=== PATIENT | female | born 1930 | race Hispanic/Latino ===

== ENCOUNTER 2017-06-20 13:20 | Emergency (ER) | payer MEDICARE ==
[~2017-06-20 13:20] MED LIST: FAMO20TA8 PO; FLUT16H NS; LORA-997 PO; LORA1TAB3 PO; LOSA50TA37 PO; METF-526 PO; NAPR375T6 PO; PANT40TA25 PO; SIMV40TA59 PO
[2017-06-20] MEDS ORDERED: SODIUM CHLORIDE 0.9% 1000ML 1,000 ML IV ONE (13:47)
[2017-06-20] MEDS ORDERED: ONDANSETRON HCL MDV 20ML 2 MG/ML VIAL ONE (13:48)
[2017-06-20 14:08] LABS: BASOPHILS % (AUTO) 0.5 % (0.0-5.0); EOSINOPHILS % (AUTO) 1.9 % (0.0-8.0); HEMATOCRIT 30.2 % (36-48); MEAN CORPUSCULAR HEMOGLOBIN 26.7 pg (27.0-33.0); MEAN CORPUSCULAR HGB CONC 32.4 g/dL (32.0-36.0); MEAN CORPUSCULAR VOLUME 82.5 fL (79-99); MONOCYTES % (AUTO) 8.8 % (3.0-13.0); NEUTROPHILS % (AUTO) 63.8 % (40.0-77.0); PLATELET COUNT (AUTO) 300 K/uL (130-400); RED BLOOD CELL COUNT(AUTO) 3.66 MIL/uL (4.00-5.50); RED CELL DISTRIBUTION WIDTH 15.8 % (11.0-15.5); WHITE BLOOD COUNT (AUTO) 6.4 K/uL (4.8-10.8)
[2017-06-20 14:39] LABS: CREATININE 1.2 mg/dL (0.5-1.5)
[2017-06-20 14:43] LABS: ALBUMIN 3.7 g/dL (3.5-5.0); BILIRUBIN,TOTAL 0.3 mg/dL (0.2-1.0); TOTAL PROTEIN, SERUM 7.5 g/dL (6.0-8.3)
[2017-06-20 15:55] LABS: APPEARANCE,URINE CLEAR (CLEAR); BILIRUBIN,URINE Negative (NEGATIVE); COLOR,URINE Yellow (YELLOW); GLUCOSE, URINE (UA) TRACE mg/dL (NEGATIVE); KETONES,URINE Negative (NEGATIVE); LEUKOCYTE ESTERASE ,URINE Negative (NEGATIVE); NITRATE,URINE Negative (NEGATIVE); OCCULT BLOOD,URINE Negative (NEGATIVE); PROTEIN,URINE POS 1+ (NEGATIVE); UROBILINOGEN,URINE 0.2 mg/dL (0.2-1.0)
[2017-06-20 17:04] LABS: BACTERIA,URINE Rare /HPF (None Seen); RBC,URINE 0-1 /HPF (0-1); SQUAMOUS EPITHELIAL CELL,UR Rare /HPF (0-2); WBC,URINE 0-1 /HPF (0-1)
== END 2017-06-20 17:05 | disposition home or self-care (01) ==
LOC: EDH 13:20
DX: K52.9 Noninfective gastroenteritis and colitis, unspecified (principal); R53.1 Weakness; E11.9 Type 2 diabetes mellitus without complications; I10 Essential (primary) hypertension; E78.5 Hyperlipidemia, unspecified; G30.9 Alzheimer's disease, unspecified; F02.80 Dementia in other diseases classified elsewhere, unspecified severity, without behavioral disturbance, psychotic disturbance, mood disturbance, and anxiety
CPT/HCPCS: 36415; 74176; 80053; 81001; 82150; 83690; 84484; 85025; 93005; 96361; 96374; 99285; J7030

== ENCOUNTER 2017-09-16 11:27 | Inpatient (IN) | payer MEDICARE ==
[~2017-09-16] VITALS: Ht 147.3 cm; Wt 66.9 kg
[2017-09-16 12:18] LABS: BASOPHILS % (AUTO) 0.2 % (0.0-5.0); LYMPHOCYTES % (AUTO) 11.3 % (21.0-51.0); MEAN CORPUSCULAR HEMOGLOBIN 28.3 pg (27.0-33.0); MEAN CORPUSCULAR HGB CONC 33.8 g/dL (32.0-36.0); MEAN CORPUSCULAR VOLUME 83.7 fL (79-99); MONOCYTES % (AUTO) 9.3 % (3.0-13.0); NEUTROPHILS % (AUTO) 78.2 % (40.0-77.0); PLATELET COUNT (AUTO) 276 K/uL (130-400); RED BLOOD CELL COUNT(AUTO) 3.35 MIL/uL (4.00-5.50); RED CELL DISTRIBUTION WIDTH 15.7 % (11.0-15.5); WHITE BLOOD COUNT (AUTO) 6.1 K/uL (4.8-10.8)
[2017-09-16] MEDS ORDERED: SODIUM CHLORIDE 0.9% 1000ML 2,000 ML IV ONE (12:21)
[2017-09-16] MEDS ORDERED: ACETAMINOPHEN 325 MG TAB ONE (12:24)
[2017-09-16] MEDS ORDERED: ONDANSETRON HCL 4 MG/2 ML VIAL ONE (12:24)
[2017-09-16 12:26] LABS: CARBON DIOXIDE 24 mmol/L (21-32); CHLORIDE 96 mmol/L (101-111); CREATININE 1.6 mg/dL (0.5-1.5); GLOMERULAR FILTR. RATE CALC 32 mL/min (>60); GLUCOSE,RANDOM 202 mg/dL (70-105); POTASSIUM 5.4 mmol/L (3.5-5.1); SODIUM SERUM 133 mmol/L (136-145); UREA NITROGEN, BLOOD 23 mg/dL (7-18)
[2017-09-16 12:29] LABS: INR 1.01 (0.85-1.15); PARTIAL THROMBOPLASTIN TIME 33.9 SEC (26.3-35.5); PROTHROMBIN TIME 10.6 SEC (9.6-11.6)
[2017-09-16 12:41] LABS: ALANINE AMINOTRANSFERASE 12 U/L (12-78); ALBUMIN 3.3 g/dL (3.5-5.0); ASPARTATE AMINOTRANSFERASE 12 U/L (10-37); BILIRUBIN,TOTAL 0.3 mg/dL (0.2-1.0); CREATINE KINASE MB 1.9 ng/mL (0.5-3.6); CREATINE KINASE, TOTAL 231 U/L (21-232); MYOGLOBIN 476 ng/mL (10-92); TROPONIN I < 0.04 ng/mL (0.00-0.06)
[2017-09-16 12:49] LABS: BILIRUBIN,URINE Negative (NEGATIVE); COLOR,URINE Yellow (YELLOW); GLUCOSE, URINE (UA) Negative (NEGATIVE); KETONES,URINE Negative (NEGATIVE); LEUKOCYTE ESTERASE ,URINE Negative (NEGATIVE); NITRATE,URINE Negative (NEGATIVE); OCCULT BLOOD,URINE Negative (NEGATIVE); PROTEIN,URINE POS 2+ (NEGATIVE); UROBILINOGEN,URINE 0.2 mg/dL (0.2-1.0)
[2017-09-16] MEDS ORDERED: LEVOFLOXACIN 750 MG/D5W 150 ML 150 ML ONE (12:51)
[2017-09-16 12:52] LABS: APPEARANCE,URINE SLIGHTLY CLOUDY (CLEAR)
[2017-09-16 13:05] LABS: AMORPHOUS SEDIMENT,UR Many /LPF (None Seen); BACTERIA,URINE Few /HPF (None Seen); RBC,URINE None Seen /HPF (0-1); WBC,URINE None Seen /HPF (0-1)
[2017-09-16 13:51] LABS: OCCULT BLOOD STOOL SINGLE ONLY POSITIVE (NEGATIVE)
[2017-09-16] MEDS: METRONIDAZOLE 500MG/100ML BAG 100 ML IVPB SCH (16:00)
[2017-09-16] MEDS: SODIUM CHLORIDE 0.9% 1000ML 1,000 ML IV SCH (16:15)
[2017-09-16] MEDS ORDERED: SODIUM CHLORIDE 0.9% 1000ML 1,000 ML IV ONE (18:24)
[2017-09-16] MEDS ORDERED: METRONIDAZOLE 500MG/100ML BAG 100 ML ONE (18:24)
[2017-09-16] MEDS ORDERED: GLYC1TAB11 PO (22:43)
[2017-09-16] MEDS ORDERED: AMLO5TAB2 PO (22:47)
[2017-09-16] MEDS ORDERED: TRAM50TA4 PO (22:52)
[2017-09-16] MEDS ORDERED: FURO20TA4 PO (22:52)
[2017-09-16] MEDS ORDERED: ACET325C5 PO (22:52)
[2017-09-16] MEDS ORDERED: DIPH1TAB PO (22:59)
[2017-09-16] MEDS ORDERED: FERR325T22 PO (22:59)
[2017-09-16] MEDS ORDERED: PANT40TA25 PO (22:59)
[2017-09-16] MEDS ORDERED: LINA145C PO (23:03)
[2017-09-16] MEDS ORDERED: DOCU100C33 PO (23:03)
[2017-09-16] MEDS ORDERED: XALA2.5OS OU (23:06)
[2017-09-16] MEDS ORDERED: HUM10VIA6 SQ ×2 (23:11)
[2017-09-16] MEDS ORDERED: ONDA8TAB12 PO (23:11)
[2017-09-16] MEDS ORDERED: ACETAMINOPHEN 325 MG TAB PO PRN ×2 (23:30)
[2017-09-16] MEDS ORDERED: ONDANSETRON HCL MDV 20ML 2 MG/ML VIAL IV PRN (23:30)
[2017-09-16] MEDS ORDERED: GLUCAGON 1MG KIT 1 MG ML IM PRN (23:45)
[2017-09-16] MEDS ORDERED: DEXTROSE 50%-WATER 50 ML DISP.SYRIN IV PRN (23:45)
[2017-09-17] VITALS: BP 158/51
[2017-09-17] MEDS: METRONIDAZOLE 500MG/100ML BAG 100 ML IVPB SCH ×3 (00:35→16:06)
[2017-09-17] MEDS: SODIUM CHLORIDE 0.9% 1000ML 1,000 ML IV SCH ×2 (02:15→09:45)
[2017-09-17 04:00] VITALS: BP 151/69
[2017-09-17 04:50] LABS: BASOPHILS % (AUTO) 0.3 % (0.0-5.0); EOSINOPHILS % (AUTO) 2.7 % (0.0-8.0); HEMATOCRIT 24.7 % (36-48); MEAN CORPUSCULAR HEMOGLOBIN 27.2 pg (27.0-33.0); MEAN CORPUSCULAR HGB CONC 32.2 g/dL (32.0-36.0); MEAN CORPUSCULAR VOLUME 84.2 fL (79-99); MONOCYTES % (AUTO) 12.8 % (3.0-13.0); NEUTROPHILS % (AUTO) 65.2 % (40.0-77.0); PLATELET COUNT (AUTO) 244 K/uL (130-400); RED BLOOD CELL COUNT(AUTO) 2.93 MIL/uL (4.00-5.50); RED CELL DISTRIBUTION WIDTH 15.7 % (11.0-15.5); WHITE BLOOD COUNT (AUTO) 5.1 K/uL (4.8-10.8)
[2017-09-17 05:02] LABS: CREATININE 1.4 mg/dL (0.5-1.5); POTASSIUM 4.2 mmol/L (3.5-5.1)
[2017-09-17] MEDS: INSULIN HUMULIN R 100 UNIT/ML 3ML SQ SCH ×4 (06:23→20:40)
[2017-09-17 07:30] VITALS: BP 169/77
[2017-09-17] MEDS: ENOXAPARIN SODIUM 40 MG/0.4 ML SYRINGE SQ SCH (09:42)
[2017-09-17] MEDS: FAMOTIDINE 20MG TAB 20 MG TAB PO SCH (09:43)
[2017-09-17 11:00] VITALS: BP 146/58
[2017-09-17 16:00] VITALS: BP 148/61
[2017-09-17] MEDS ORDERED: LORAZEPAM 1 MG TABLET PO PRN (17:30)
[2017-09-17] MEDS ORDERED: FUROSEMIDE 20 MG TABLET PO PRN (17:30)
[2017-09-17] MEDS ORDERED: TRAMADOL HCL 50 MG TABLET PO PRN (17:30)
[2017-09-17 19:14] LABS: HEMATOCRIT 24.4 % (36-48)
[2017-09-17 20:00] VITALS: BP 177/62
[2017-09-17] MEDS: LACTOBACILLUS RHAMNOSUS GG 1 EACH CAP.SPRINK PO SCH (20:26)
[2017-09-17] MEDS ORDERED: ATORVASTATIN CALCIUM 20 MG TABLET PO SCH (21:00)
[2017-09-17] MEDS ORDERED: LATANOPROST 2.5 ML DROPS OU SCH (21:00)
[2017-09-18] VITALS: BP 181/83
[2017-09-18] MEDS ORDERED: HYDRALAZINE HCL 20 MG/ML VIAL IV PRN
[2017-09-18] MEDS ORDERED: METOPROLOL TARTRATE 1 MG/ML 5ML VIAL IV PRN
[2017-09-18 01:29] LABS: CREATININE 1.2 mg/dL (0.5-1.5); POTASSIUM 3.8 mmol/L (3.5-5.1)
[2017-09-18 02:16] LABS: BASOPHILS % (AUTO) 0.3 % (0.0-5.0); EOSINOPHILS % (AUTO) 2.4 % (0.0-8.0); HEMATOCRIT 24.6 % (36-48); LYMPHOCYTES % (AUTO) 23.7 % (21.0-51.0); MEAN CORPUSCULAR HEMOGLOBIN 27.2 pg (27.0-33.0); MEAN CORPUSCULAR HGB CONC 32.4 g/dL (32.0-36.0); MEAN CORPUSCULAR VOLUME 83.9 fL (79-99); MONOCYTES % (AUTO) 14.5 % (3.0-13.0); NEUTROPHILS % (AUTO) 59.1 % (40.0-77.0); PLATELET COUNT (AUTO) 230 K/uL (130-400); RED BLOOD CELL COUNT(AUTO) 2.93 MIL/uL (4.00-5.50); RED CELL DISTRIBUTION WIDTH 15.8 % (11.0-15.5); WHITE BLOOD COUNT (AUTO) 5.8 K/uL (4.8-10.8)
[2017-09-18] MEDS: INSULIN HUMULIN R 100 UNIT/ML 3ML SQ SCH ×2 (06:22→12:13)
[2017-09-18] MEDS: SODIUM CHLORIDE 0.9% 1000ML 1,000 ML IV SCH (07:16)
[2017-09-18 08:32] VITALS: BP 165/69
[2017-09-18] MEDS ORDERED: AMLODIPINE BESYLATE 5 MG TAB PO SCH (09:00)
[2017-09-18] MEDS ORDERED: FLUTICASONE PROPIONATE 50MCG/SPRAY 16 GM BOTTLE NS SCH ×2 (09:00)
[2017-09-18] MEDS ORDERED: LEVOFLOXACIN 500 MG/D5W 100 ML 100 ML IV SCH (09:00)
[2017-09-18] MEDS ORDERED: FERROUS SULFATE 325 MG TABLET.DR PO SCH (09:00)
[2017-09-18] MEDS ORDERED: LORATADINE 10 MG TABLET PO SCH (09:00)
[2017-09-18] MEDS ORDERED: LOSARTAN 50 MG TABLET PO SCH (09:00)
[2017-09-18] MEDS: FAMOTIDINE 20MG TAB 20 MG TAB PO SCH (10:27)
[2017-09-18] MEDS: LACTOBACILLUS RHAMNOSUS GG 1 EACH CAP.SPRINK PO SCH (10:27)
[2017-09-18] MEDS: ENOXAPARIN SODIUM 40 MG/0.4 ML SYRINGE SQ SCH (10:29)
[2017-09-18] MEDS: METRONIDAZOLE 500MG/100ML BAG 100 ML IVPB SCH ×2 (10:45)
[2017-09-18 12:00] VITALS: BP 165/92
[2017-09-18] MEDS ORDERED: LACT1CAP79 PO (14:54)
[2017-09-18] MEDS ORDERED: LEVO500T2 PO (14:54)
== END 2017-09-18 17:40 | disposition home or self-care (01) | DRG 872 ==
LOC: EDH 11:27 → EDHIP 15:45 → 4CH 21:45
PROVIDERS: ADMIT Internal Medicine Nephrology; ATTEND Internal Medicine Nephrology
DX: A41.9 Sepsis, unspecified organism (principal); E11.9 Type 2 diabetes mellitus without complications; K52.9 Noninfective gastroenteritis and colitis, unspecified; I10 Essential (primary) hypertension; E78.5 Hyperlipidemia, unspecified; F41.9 Anxiety disorder, unspecified; G20 Parkinson's disease; M19.90 Unspecified osteoarthritis, unspecified site; Z85.038 Personal history of other malignant neoplasm of large intestine
CPT/HCPCS: 36415; 71045; 80048; 80053; 81001; 82270; 82550; 82553; 82948; 83605; 83874; 84484; 85014; 85018; 85025; 85610; 85730; 87040; 87046; 87088; 87177; 87205; 87324; 87507; 93005; J1650; J1815; J1956; J2405; J3490; J7030

== ENCOUNTER 2018-04-01 14:54 | Emergency (ER) | payer MEDICARE ==
[~2018-04-01 14:54] MED LIST changes: +ACET325C5 PO; +AMLO5TAB9 PO; +ASPI-555 PO; +CEPH-578 PO; +DOCU100C33 PO; -FAMO20TA8 PO; -FLUT16H NS; +FURO20TA4 PO; +GABA-529 PO; +HUM10VIA6 SQ; +LIFI1DRO OP; -LOSA50TA37 PO; +LOSA50TA64 PO; -NAPR375T6 PO; +ONDA4TAB10 PO; +SIME180C46 PO; +XALA2.5OS OU
[2018-04-01 15:45] LABS: BASOPHILS % (AUTO) 0.9 % (0.0-5.0); EOSINOPHILS % (AUTO) 8.4 % (0.0-8.0); HEMATOCRIT 32.3 % (36-48); LYMPHOCYTES % (AUTO) 26.6 % (21.0-51.0); MEAN CORPUSCULAR HEMOGLOBIN 28.8 pg (27.0-33.0); MEAN CORPUSCULAR HGB CONC 32.3 g/dL (32.0-36.0); MONOCYTES % (AUTO) 14.9 % (3.0-13.0); NEUTROPHILS % (AUTO) 49.2 % (40.0-77.0); PLATELET COUNT (AUTO) 241 K/uL (130-400); RED BLOOD CELL COUNT(AUTO) 3.63 MIL/uL (4.00-5.50); RED CELL DISTRIBUTION WIDTH 15.3 % (11.0-15.5)
[2018-04-01 15:54] LABS: CARBON DIOXIDE 24 mmol/L (21-32); CHLORIDE 106 mmol/L (101-111); CREATININE 1.4 mg/dL (0.5-1.5); GLOMERULAR FILTR. RATE CALC 38 mL/min (>60); GLUCOSE,RANDOM 120 mg/dL (70-105); POTASSIUM 5.9 mmol/L (3.5-5.1); SODIUM SERUM 139 mmol/L (136-145); UREA NITROGEN, BLOOD 27 mg/dL (7-18)
[2018-04-01] MEDS ORDERED: LACTULOSE 20 GM/30 ML UDCUP ONE (15:57)
[2018-04-01 15:58] LABS: ALANINE AMINOTRANSFERASE 19 U/L (12-78); ALBUMIN 3.4 g/dL (3.5-5.0); ASPARTATE AMINOTRANSFERASE 16 U/L (10-37); BILIRUBIN,TOTAL 0.2 mg/dL (0.2-1.0); TOTAL PROTEIN, SERUM 7.6 g/dL (6.0-8.3)
[2018-04-01 15:59] LABS: LIPASE < 50 U/L (114-286)
== END 2018-04-01 17:19 | disposition home or self-care (01) ==
LOC: EDH 14:54
DX: K59.00 Constipation, unspecified (principal); R10.84 Generalized abdominal pain; G30.9 Alzheimer's disease, unspecified; F02.80 Dementia in other diseases classified elsewhere, unspecified severity, without behavioral disturbance, psychotic disturbance, mood disturbance, and anxiety; I10 Essential (primary) hypertension; G20 Parkinson's disease; E11.9 Type 2 diabetes mellitus without complications; Z85.038 Personal history of other malignant neoplasm of large intestine
CPT/HCPCS: 36415; 74176; 80053; 83690; 85025

== ENCOUNTER → 2018-05-07 | Outpatient (CLI) | payer MEDICARE ==
[~2018-05-07] MED LIST changes: -ACET325C5 PO; +ACET325C6 PO
== END | disposition home or self-care (01) ==
LOC: SHCH 14:03
PROVIDERS: ATTEND Internal Medicine Cardiovascular Disease
DX: I10 Essential (primary) hypertension (principal); R00.0 Tachycardia, unspecified
CPT/HCPCS: 93306

== ENCOUNTER 2018-07-13 13:53 | Emergency (ER) | payer MEDICARE ==
[~2018-07-13 13:53] MED LIST changes: +ACET325C5 PO; -ACET325C6 PO
[2018-07-13 14:54] LABS: BASOPHILS % (AUTO) 0.3 % (0.0-5.0); EOSINOPHILS % (AUTO) 4.3 % (0.0-8.0); LYMPHOCYTES % (AUTO) 37.5 % (21.0-51.0); MEAN CORPUSCULAR HEMOGLOBIN 29.7 pg (27.0-33.0); MEAN CORPUSCULAR HGB CONC 33.1 g/dL (32.0-36.0); MEAN CORPUSCULAR VOLUME 89.7 fL (79-99); MONOCYTES % (AUTO) 10.8 % (3.0-13.0); NEUTROPHILS % (AUTO) 47.1 % (40.0-77.0); NUCLEATED RED BLOOD CELLS 0.1 % (0.0-0.19); PLATELET COUNT (AUTO) 241 K/uL (130-400); RED BLOOD CELL COUNT(AUTO) 3.56 MIL/uL (4.00-5.50); RED CELL DISTRIBUTION WIDTH 14.8 % (11.0-15.5); WHITE BLOOD COUNT (AUTO) 5.5 K/uL (4.8-10.8)
[2018-07-13 15:11] LABS: CREATININE 1.2 mg/dL (0.5-1.5); POTASSIUM 4.8 mmol/L (3.5-5.1)
[2018-07-13 15:15] LABS: ALBUMIN 3.6 g/dL (3.5-5.0); BILIRUBIN,TOTAL 0.2 mg/dL (0.2-1.0); TOTAL PROTEIN, SERUM 7.6 g/dL (6.0-8.3)
== END 2018-07-13 15:48 | disposition home or self-care (01) ==
LOC: EDH 13:53
DX: I10 Essential (primary) hypertension (principal); E11.9 Type 2 diabetes mellitus without complications; E78.5 Hyperlipidemia, unspecified; G30.9 Alzheimer's disease, unspecified; F02.80 Dementia in other diseases classified elsewhere, unspecified severity, without behavioral disturbance, psychotic disturbance, mood disturbance, and anxiety; G20 Parkinson's disease; Z85.038 Personal history of other malignant neoplasm of large intestine
CPT/HCPCS: 36415; 80053; 85025; 93005

== ENCOUNTER 2019-01-31 07:48 | Emergency (ER) | payer MEDICARE ==
[~2019-01-31 07:48] MED LIST changes: -ACET325C5 PO; +ACET325C6 PO
[2019-01-31 09:11] LABS: BASOPHILS % (AUTO) 0.2 % (0.0-5.0); EOSINOPHILS % (AUTO) 1.8 % (0.0-8.0); HEMATOCRIT 37.4 % (36-48); LYMPHOCYTES % (AUTO) 19.8 % (21.0-51.0); MEAN CORPUSCULAR HEMOGLOBIN 30.6 pg (27.0-33.0); MEAN CORPUSCULAR HGB CONC 33.1 g/dL (32.0-36.0); MEAN CORPUSCULAR VOLUME 92.4 fL (79-99); NEUTROPHILS % (AUTO) 70.2 % (40.0-77.0); PLATELET COUNT (AUTO) 242 K/uL (130-400); RED BLOOD CELL COUNT(AUTO) 4.04 MIL/uL (4.00-5.50); RED CELL DISTRIBUTION WIDTH 13.9 % (11.0-15.5); WHITE BLOOD COUNT (AUTO) 7.4 K/uL (4.8-10.8)
[2019-01-31 09:22] LABS: CREATININE 1.4 mg/dL (0.5-1.5); POTASSIUM 4.4 mmol/L (3.5-5.1)
[2019-01-31 09:23] LABS: INR 0.98 (0.85-1.15); PARTIAL THROMBOPLASTIN TIME 32.9 SEC (26.3-35.5); PROTHROMBIN TIME 10.3 SEC (9.6-11.6)
== END 2019-01-31 10:02 | disposition home or self-care (01) ==
LOC: EDH 07:48
DX: S46.911A Strain of unspecified muscle, fascia and tendon at shoulder and upper arm level, right arm, initial encounter (principal); S49.91XA Unspecified injury of right shoulder and upper arm, initial encounter; E11.40 Type 2 diabetes mellitus with diabetic neuropathy, unspecified; R20.2 Paresthesia of skin; M19.90 Unspecified osteoarthritis, unspecified site; I10 Essential (primary) hypertension; E78.5 Hyperlipidemia, unspecified; G30.9 Alzheimer's disease, unspecified; F02.80 Dementia in other diseases classified elsewhere, unspecified severity, without behavioral disturbance, psychotic disturbance, mood disturbance, and anxiety; Z85.038 Personal history of other malignant neoplasm of large intestine; W01.0XXA Fall on same level from slipping, tripping and stumbling without subsequent striking against object, initial encounter; Y93.01 Activity, walking, marching and hiking; Y92.89 Other specified places as the place of occurrence of the external cause; Y99.8 Other external cause status
CPT/HCPCS: 36415; 70450; 72125; 73030; 80048; 85025; 85610; 85730

== ENCOUNTER 2019-05-22 07:48 | Emergency (ER) | payer MEDICARE ==
[2019-05-22] MEDS ORDERED: SODIUM CHLORIDE 0.9% 1000ML 1,000 ML IV ONE (09:07)
[2019-05-22 09:09] LABS: BASOPHILS % (AUTO) 0.1 % (0.0-5.0); EOSINOPHILS % (AUTO) 1.5 % (0.0-8.0); HEMATOCRIT 33.6 % (36-48); MEAN CORPUSCULAR HEMOGLOBIN 29.4 pg (27.0-33.0); MEAN CORPUSCULAR HGB CONC 31.8 g/dL (32.0-36.0); MEAN CORPUSCULAR VOLUME 92.3 fL (79-99); MONOCYTES % (AUTO) 10.1 % (3.0-13.0); NEUTROPHILS % (AUTO) 69.1 % (40.0-77.0); PLATELET COUNT (AUTO) 331 K/uL (130-400); RED BLOOD CELL COUNT(AUTO) 3.64 MIL/uL (4.00-5.50); RED CELL DISTRIBUTION WIDTH 12.5 % (11.0-15.5); WHITE BLOOD COUNT (AUTO) 8.5 K/uL (4.8-10.8)
[2019-05-22 09:15] LABS: CREATININE 1.7 mg/dL (0.5-1.5); POTASSIUM 4.5 mmol/L (3.5-5.1)
[2019-05-22 09:21] LABS: ALBUMIN 3.4 g/dL (3.5-5.0); BILIRUBIN,TOTAL 0.3 mg/dL (0.2-1.0); INR 1.01 (0.85-1.15); PARTIAL THROMBOPLASTIN TIME 35.7 SEC (26.3-35.5); PROTHROMBIN TIME 10.6 SEC (9.6-11.6); TOTAL PROTEIN, SERUM 7.9 g/dL (6.0-8.3)
== END 2019-05-22 12:16 | disposition home or self-care (01) ==
LOC: EDH 07:48
DX: S02.2XXA Fracture of nasal bones, initial encounter for closed fracture (principal); S00.11XA Contusion of right eyelid and periocular area, initial encounter; H11.31 Conjunctival hemorrhage, right eye; M19.90 Unspecified osteoarthritis, unspecified site; E11.9 Type 2 diabetes mellitus without complications; E78.5 Hyperlipidemia, unspecified; G30.9 Alzheimer's disease, unspecified; F02.80 Dementia in other diseases classified elsewhere, unspecified severity, without behavioral disturbance, psychotic disturbance, mood disturbance, and anxiety; I10 Essential (primary) hypertension; Z79.899 Other long term (current) drug therapy; W18.39XA Other fall on same level, initial encounter; Y93.01 Activity, walking, marching and hiking; Y92.89 Other specified places as the place of occurrence of the external cause; Y99.8 Other external cause status
CPT/HCPCS: 36415; 70450; 70486; 72125; 80053; 84484; 85025; 85610; 85730; 93005; 99285; J7030

== ENCOUNTER 2019-06-14 02:06 | Inpatient (IN) | payer MEDICARE ==
[2019-06-14] VITALS (27 sets, daily range): BP systolic 93–142; BP diastolic 32–98
[~2019-06-14] VITALS: Ht 152.4 cm; Wt 68.0 kg
[2019-06-14] MEDS ORDERED: MORPHINE SULFATE 4 MG/1ML SYG ONE ×2 (02:39→06:47)
[2019-06-14] MEDS ORDERED: ONDANSETRON HCL 4 MG/2 ML VIAL ONE ×2 (02:39→06:47)
[2019-06-14] MEDS ORDERED: SODIUM CHLORIDE 0.9% 500ML 500 ML IV ONE ×4 (02:40→20:57)
[2019-06-14 02:54] LABS: BASOPHILS % (AUTO) 0.1 % (0.0-5.0); HEMATOCRIT 33.3 % (36-48); LYMPHOCYTES % (AUTO) 8.7 % (21.0-51.0); MEAN CORPUSCULAR HEMOGLOBIN 29.6 pg (27.0-33.0); MEAN CORPUSCULAR HGB CONC 31.8 g/dL (32.0-36.0); NEUTROPHILS % (AUTO) 73.7 % (40.0-77.0); PLATELET COUNT (AUTO) 262 K/uL (130-400); RED BLOOD CELL COUNT(AUTO) 3.58 MIL/uL (4.00-5.50); RED CELL DISTRIBUTION WIDTH 12.6 % (11.0-15.5); WHITE BLOOD COUNT (AUTO) 9.3 K/uL (4.8-10.8)
[2019-06-14 03:10] LABS: ALBUMIN 2.7 g/dL (3.5-5.0); BILIRUBIN,TOTAL 0.7 mg/dL (0.2-1.0); TOTAL PROTEIN, SERUM 6.4 g/dL (6.0-8.3)
[2019-06-14 04:19] LABS: APPEARANCE,URINE CLOUDY (CLEAR); BILIRUBIN,URINE MODERATE (NEGATIVE); COLOR,URINE YELLOW (YELLOW); GLUCOSE, URINE (UA) NEGATIVE (NEGATIVE); KETONES,URINE 5 mg/dL (NEGATIVE); LEUKOCYTE ESTERASE ,URINE MODERATE (NEGATIVE); NITRATE,URINE NEGATIVE (NEGATIVE); OCCULT BLOOD,URINE NEGATIVE (NEGATIVE); PH,URINE 5.5 (5.0-8.0); PROTEIN,URINE 100 mg/dL (NEGATIVE)
[2019-06-14 04:21] LABS: WBC,URINE 26-50 /HPF (0-1)
[2019-06-14 04:22] LABS: BACTERIA,URINE Moderate /HPF (None Seen); SQUAMOUS EPITHELIAL CELL,UR Rare /HPF (0-2)
[2019-06-14] MEDS ORDERED: ZOSYN 3.375GM+NS 50ML 50 ML IV ONE (06:01)
[2019-06-14] MEDS ORDERED: IPRATROPIUM/ALBUTEROL SULFATE 3 ML SOLUTION IH ONE (07:03)
[2019-06-14 07:23] LABS: ABG BASE EXCESS -11.4 mmol/L (-2.0-3.0); ABG HCO3 12.9 mmol/L (21.0-28.0); ABG OXYGEN SATURATION 95.5 % (95.0-99.0); ABG PCO2 26 mmHg (32-45)
[2019-06-14] MEDS ORDERED: SODIUM CHLORIDE 0.9% 1000ML 1,000 ML IV SCH (08:31)
[2019-06-14] MEDS ORDERED: ONDANSETRON HCL 4 MG/2 ML VIAL IV PRN (08:45)
[2019-06-14] MEDS ORDERED: ACETAMINOPHEN 325 MG TAB PO PRN ×2 (08:45)
[2019-06-14] MEDS ORDERED: HYDRALAZINE HCL 20 MG/ML VIAL IV PRN (08:45)
[2019-06-14] MEDS: FAMOTIDINE/PF 20 MG/2 ML VIAL IV SCH (09:00)
[2019-06-14] MEDS: METRONIDAZOLE 500 MG TABLET PO SCH ×3 (09:00→21:00)
[2019-06-14] MEDS ORDERED: METRONIDAZOLE 500 MG TABLET ONE (10:22)
[2019-06-14] MEDS ORDERED: SODIUM CHLORIDE 0.9% 1000ML 1,000 ML IV ONE (10:23)
[2019-06-14] MEDS ORDERED: FAMOTIDINE/PF 20 MG/2 ML VIAL IV ONE (10:23)
[2019-06-14] MEDS ORDERED: ZOSYN 3.375GM+NS 50ML 50 ML IV SCH ×2 (11:16→11:17)
[2019-06-14 11:30] LABS: HEMATOCRIT 38.5 % (36-48)
[2019-06-14] MEDS ORDERED: NOREPINEPHRINE BITARTRATE 1 MG/1 ML ML IV ONE (11:56)
[2019-06-14] MEDS ORDERED: SODIUM CHLORIDE 0.9% 250 ML IV ONE (11:57)
[2019-06-14] MEDS ORDERED: SODIUM BICARB 50MEQ 50ML VIAL ONE ×3 (12:28→23:45)
[2019-06-14 12:45] LABS: ABG BASE EXCESS -22.1 mmol/L (-2.0-3.0); ABG HCO3 9.1 mmol/L (21.0-28.0); ABG OXYGEN SATURATION 98.6 % (95.0-99.0); ABG PCO2 45 mmHg (32-45)
[2019-06-14] MEDS ORDERED: VANCOMYCIN PROTOCOL PER PHARMACY IV SCH (12:45)
[2019-06-14] MEDS: LACTATED RINGERS 1000ML 1,000 ML IV SCH ×2 (13:00→21:33)
[2019-06-14] MEDS ORDERED: LACTATED RINGERS 1000ML IV SCH (13:00)
[2019-06-14] MEDS ORDERED: VASOPRESSIN 40 UNITS in SODIUM CHLORIDE 0.9% 40 ML IV SCH (13:00)
[2019-06-14] MEDS ORDERED: SODIUM BICARB 50MEQ 50ML VIAL IV STA (13:03)
[2019-06-14] MEDS ORDERED: VANCOMYCIN 500MG+NS 100ML 100 ML IV SCH (13:15)
[2019-06-14] MEDS: MEROPENEM 500 MG VIAL IVP SCH (13:30)
--- NOTE | 2019-06-14 13:31 | NUR ---
VIKI RIZO SW responded to V[facility] Rizo and attempted to reach patient's provider, Kamilah Nagy, but was unsuccessful. SW did contact patient's son, Rico Marrero, who lives in [place]. [facility] Sveta Breen spoke to son and provided update on patient. SW did speak to patient's provider after she showed up the ER. Provider informed SW that she had already called patient's daughter,Liliane Carroll, who lives in [place] and gave her an update on patient's condition. SW will continue to follow up.
[2019-06-14 13:32] LABS: HEMATOCRIT 26.9 % (36-48); MEAN CORPUSCULAR HEMOGLOBIN 29.8 pg (27.0-33.0); MEAN CORPUSCULAR HGB CONC 29.4 g/dL (32.0-36.0); MEAN CORPUSCULAR VOLUME 101.5 fL (79-99); NUCLEATED RED BLOOD CELLS 0.2 % (0.0-0.19); PLATELET COUNT (AUTO) 183 K/uL (130-400); RED BLOOD CELL COUNT(AUTO) 2.65 MIL/uL (4.00-5.50); RED CELL DISTRIBUTION WIDTH 13.1 % (11.0-15.5); WHITE BLOOD COUNT (AUTO) 9.1 K/uL (4.8-10.8)
[2019-06-14] MEDS ORDERED: COMPOUND IV REFRIGERATED 1 EACH IVSOLN MISC PRN (13:45)
[2019-06-14] MEDS ORDERED: ATROPINE SULFATE 0.1 MG/ML 10 ML SYG IVP ONE (13:51)
[2019-06-14] MEDS ORDERED: CALCIUM CHLORIDE 100 MG/ML 10 ML SYG IVP ONE (13:51)
[2019-06-14] MEDS ORDERED: SODIUM BICARB 8.4% 50ML SYRINGE IVP ONE (13:51)
[2019-06-14] MEDS ORDERED: VANCOMYCIN 1.25 GM in SODIUM CHLORIDE 0.9% 250 ML IV ONE (14:00)
[2019-06-14 14:10] LABS: BAND NEUTROPHILS % (MANUAL) 13 % (0-2); EOSINOPHILS % (MANUAL) 1 % (1-6); LYMPHOCYTES % (MANUAL) 50 % (22-44); MAN.DIFF COMMENT-IMPRESSION MANUAL DIFFERENTIAL; MONOCYTES % (MANUAL) 17 % (2-9); PLATELET MORPHOLOGY COMMENT ADEQUATE; SEGMENTED NEUTROPHILS % 19 % (40-70)
[2019-06-14 14:49] LABS: ABG BASE EXCESS -23.9 mmol/L (-2.0-3.0); ABG HCO3 7.5 mmol/L (21.0-28.0); ABG OXYGEN SATURATION 98.7 % (95.0-99.0); ABG PCO2 34 mmHg (32-45)
[2019-06-14 15:00] LABS: ALBUMIN 1.5 g/dL (3.5-5.0); BILIRUBIN,TOTAL 0.7 mg/dL (0.2-1.0); CREATININE 2.6 mg/dL (0.5-1.5); TOTAL PROTEIN, SERUM 4.3 g/dL (6.0-8.3)
[2019-06-14] MEDS: SODIUM BICARB 8.4% 50ML SYRING 150 MEQ in DEXTROSE 5%-WATER 1,000 ML IV SCH (15:00)
[2019-06-14] MEDS ORDERED: NOREPINEPHRINE 4MG/NS 250ML 250 ML IV SCH (15:15)
[2019-06-14 15:48] LABS: INR 2.04 (0.85-1.15); PARTIAL THROMBOPLASTIN TIME 87.9 SEC (26.3-35.5); PROTHROMBIN TIME 21.4 SEC (9.6-11.6)
[2019-06-14] MEDS ORDERED: FENTANYL CITRATE PF 50 MCG/1 ML 5ML AMP IV ONE (17:10)
[2019-06-14] MEDS ORDERED: MIDAZOLAM HCL 1 MG/ML 2ML VIAL ONE (17:15)
[2019-06-14] MEDS: NOREPINEPHRINE 4MG/NS 250ML IV SCH ×2 (18:57→21:32)
[2019-06-14] MEDS ORDERED: LIDOCAINE HCL 1% 20 ML VIAL ONE (19:18)
[2019-06-14 20:26] LABS: ABG BASE EXCESS -23.3 mmol/L (-2.0-3.0); ABG HCO3 6.4 mmol/L (21.0-28.0); ABG OXYGEN SATURATION 99.9 % (95.0-99.0); ABG PCO2 27 mmHg (32-45)
[2019-06-14 23:25] LABS: APPEARANCE,URINE Turbid (CLEAR); BILIRUBIN,URINE Moderate (NEGATIVE); COLOR,URINE Dark Yellow (YELLOW); GLUCOSE, URINE (UA) Negative (NEGATIVE); KETONES,URINE Trace mg/dL (NEGATIVE); LEUKOCYTE ESTERASE ,URINE Large (NEGATIVE); NITRATE,URINE Positive (NEGATIVE); OCCULT BLOOD,URINE Moderate (NEGATIVE); PROTEIN,URINE 300 mg/dL (NEGATIVE)
[2019-06-14] MEDS ORDERED: SODIUM BICARB 8.4% 50ML SYRINGE IVP SCH ×3 (23:30→23:40)
[2019-06-14 23:32] LABS: BACTERIA,URINE Many /HPF (None Seen); MUCUS,URINE Few LPF (None Seen); SQUAMOUS EPITHELIAL CELL,UR Rare /HPF (0-2); WBC,URINE TNTC /HPF (0-1)
--- NOTE | 2019-06-14 23:43 | NUR ---
2680 Daughter Ada here to see patient. Left , states she is going to cotton picking machine operator her brother at the airport in [place]. Spoke with Dr Angeles. Reported labs, pt status. Orders received.
[2019-06-15] VITALS (38 sets, daily range): BP systolic 65–145; BP diastolic 31–97
[2019-06-15] MEDS ORDERED: PHARMACY COMMUNICATION MISC SCH (00:15)
[2019-06-15] MEDS: METRONIDAZOLE 500MG/100ML BAG 100 ML IV SCH ×4 (00:32→23:47)
[2019-06-15] MEDS: MEROPENEM 500 MG VIAL IVP SCH ×2 (00:32→13:22)
[2019-06-15] MEDS: SODIUM BICARB 8.4% 50ML SYRING 150 MEQ in DEXTROSE 5%-WATER 1,000 ML IV SCH ×4 (00:33→23:46)
[2019-06-15 00:38] LABS: ABG BASE EXCESS -13.9 mmol/L (-2.0-3.0); ABG OXYGEN SATURATION 99.7 % (95.0-99.0); ABG PCO2 28 mmHg (32-45)
--- NOTE | 2019-06-15 00:43 | NUR ---
Call placed to Dr Angeles to report labs.
--- NOTE | 2019-06-15 01:50 | NUR ---
Call placed to Dr Angeles to report labs.
[2019-06-15] MEDS ORDERED: SODIUM CHLORIDE 0.9% 100 ML IV ONE (04:16)
--- NOTE | 2019-06-15 05:40 | NUR ---
Call placed to Dr Angeles to report labs.
[2019-06-15 05:48] LABS: ALBUMIN 1.4 g/dL (3.5-5.0); BILIRUBIN,TOTAL 1.2 mg/dL (0.2-1.0); CREATININE 3.1 mg/dL (0.5-1.5); MAGNESIUM 3.3 mg/dL (1.80-2.40); PHOSPHORUS 9.1 mg/dL (2.5-4.9); POTASSIUM 4.4 mmol/L (3.5-5.1); URIC ACID 7.4 mg/dL (2.6-7.2)
[2019-06-15] MEDS: PANTOPRAZOLE SODIUM 80 MG in SODIUM CHLORIDE 0.9% 100 ML IV SCH ×3 (06:15→23:46)
[2019-06-15 06:18] LABS: BASOPHILS % (AUTO) 0.4 % (0.0-5.0); EOSINOPHILS % (AUTO) 0.4 % (0.0-8.0); LYMPHOCYTES % (AUTO) 33.8 % (21.0-51.0); MEAN CORPUSCULAR HEMOGLOBIN 29.8 pg (27.0-33.0); MEAN CORPUSCULAR HGB CONC 28.8 g/dL (32.0-36.0); MEAN CORPUSCULAR VOLUME 103.2 fL (79-99); MONOCYTES % (AUTO) 7.2 % (3.0-13.0); NEUTROPHILS % (AUTO) 48.1 % (40.0-77.0); NUCLEATED RED BLOOD CELLS 1.8 % (0.0-0.19); PLATELET COUNT (AUTO) 93 K/uL (130-400); RED BLOOD CELL COUNT(AUTO) 2.52 MIL/uL (4.00-5.50); RED CELL DISTRIBUTION WIDTH 13.4 % (11.0-15.5); WHITE BLOOD COUNT (AUTO) 2.8 K/uL (4.8-10.8)
[2019-06-15 06:24] LABS: ABG BASE EXCESS -18.5 mmol/L (-2.0-3.0); ABG HCO3 8.8 mmol/L (21.0-28.0); ABG OXYGEN SATURATION 93.9 % (95.0-99.0); ABG PCO2 26 mmHg (32-45)
--- NOTE | 2019-06-15 07:15 | NUR ---
Spoke with Dr Angeles. Full report given on pt status. Orders received
[2019-06-15] MEDS ORDERED: SODIUM BICARB 50MEQ 50ML VIAL IV SCH (07:51)
[2019-06-15] MEDS ORDERED: CALCIUM CHLORIDE 100 MG/ML 10 ML SYG IVP SCH (08:00)
[2019-06-15] MEDS ORDERED: SODIUM BICARB 50MEQ 50ML VIAL ONE ×2 (08:09→19:53)
[2019-06-15] MEDS: FAMOTIDINE/PF 20 MG/2 ML VIAL IV SCH (08:23)
[2019-06-15 08:39] LABS: BAND NEUTROPHILS % (MANUAL) 4 % (0-2); LYMPHOCYTES % (MANUAL) 71 % (22-44); MONOCYTES % (MANUAL) 5 % (2-9); SEGMENTED NEUTROPHILS % 20 % (40-70)
[2019-06-15 08:40] LABS: MAN.DIFF COMMENT-IMPRESSION MANUAL DIFFERENTIAL
[2019-06-15 08:44] LABS: PLATELET MORPHOLOGY COMMENT DECREASED
[2019-06-15] MEDS ORDERED: CALCIUM CHLORIDE 1,000 MG in SODIUM CHLORIDE 0.9% 50 ML IVP SCH (08:45)
[2019-06-15 08:59] LABS: ABG BASE EXCESS -12.3 mmol/L (-2.0-3.0); ABG HCO3 12.9 mmol/L (21.0-28.0); ABG OXYGEN SATURATION 91.3 % (95.0-99.0); ABG PCO2 29 mmHg (32-45)
--- NOTE | 2019-06-15 09:06 | NUR ---
INITIAL SW spoke with patient's provifer and friend, Kamilah Nagy, . She stated that patient lives alone. Emergency contact is son, Rico Marrero, . Patient also has a dauthter, Liliane Carroll but provider does not remember her phone number. Patient has home health services with [facility] X 1 a week. She has PHC services with [facility] X 40 hours a week. DME: walker with seat, cane, nebulizer,m BPM, glucometer (uses insulin). Patient needs help to complete ADL's and does not drive. PCP is Dr. Zelalem Vidales. Pharmacy is [facility] located in [place]. DCP is undetermined at this time since family is coming in from out of town to help make decisions for patient. Addendum: 06/15/19 at 0910 by MAIA SNYDER SS Amended: Links added.
[2019-06-15] MEDS: NOREPINEPHRINE BITARTRATE 32 MG in SODIUM CHLORIDE 0.9% 250 ML IV SCH ×2 (09:21→20:29)
[2019-06-15 09:23] LABS: HEMATOCRIT 24.3 % (36-48); MEAN CORPUSCULAR HEMOGLOBIN 29.1 pg (27.0-33.0); MEAN CORPUSCULAR HGB CONC 29.2 g/dL (32.0-36.0); MEAN CORPUSCULAR VOLUME 99.6 fL (79-99); PLATELET COUNT (AUTO) 87 K/uL (130-400); RED BLOOD CELL COUNT(AUTO) 2.44 MIL/uL (4.00-5.50); RED CELL DISTRIBUTION WIDTH 13.4 % (11.0-15.5); WHITE BLOOD COUNT (AUTO) 1.8 K/uL (4.8-10.8)
[2019-06-15 10:24] LABS: ALBUMIN 1.3 g/dL (3.5-5.0); BILIRUBIN,TOTAL 1.2 mg/dL (0.2-1.0); CREATININE 3.1 mg/dL (0.5-1.5); POTASSIUM 4.5 mmol/L (3.5-5.1); TOTAL PROTEIN, SERUM 3.7 g/dL (6.0-8.3)
--- NOTE | 2019-06-15 11:58 | NUR ---
DR MERCER'S PHYSICIAN SURGEON'S ASSISTANT IN TO SEE PT, SPOKE TO SON ABOUT CONDITION
[2019-06-15] MEDS ORDERED: INSULIN GLARGINE 100 UNITS/ML 10 ML VIAL SQ SCH (12:30)
--- NOTE | 2019-06-15 12:30 | NUR ---
ROUNDS DR TRACY, SPOKE TO SON OF PLAN OF CARE AND EXPECTATIONS.
[2019-06-15] MEDS: INSULIN HUMULIN R 100 UNIT/ML 3ML SQ SCH ×3 (13:05→23:48)
[2019-06-15 13:17] LABS: ABG BASE EXCESS -18.6 mmol/L (-2.0-3.0); ABG OXYGEN SATURATION 89.2 % (95.0-99.0); ABG PCO2 28 mmHg (32-45)
--- NOTE | 2019-06-15 13:20 | NUR ---
DR DUNBAR'S PA IN TO SEE PT. UPDATED ON CONDITION
--- NOTE | 2019-06-15 13:20 | NUR ---
2D ECHO IS BEING DONE
[2019-06-15] MEDS: HYDROCORTISONE SOD SUCCINATE 100 MG/2 ML VIAL IV SCH ×2 (14:32→20:51)
[2019-06-15] MEDS ORDERED: FLU VACC QS2019-20 36MOS UP/PF 60 MCG/0.5 ML ML IM SCH (18:00)
[2019-06-15 19:23] LABS: ABG BASE EXCESS -22.3 mmol/L (-2.0-3.0); ABG HCO3 6.7 mmol/L (21.0-28.0); ABG PCO2 25 mmHg (32-45)
[2019-06-15] MEDS ORDERED: SODIUM BICARB 50MEQ 50ML VIAL IV ONE (20:45)
--- NOTE | 2019-06-15 20:54 | NUR ---
[facility] retort pre cooker Father Luis Angel here. Approached by patient's daughter and son requesting his visit. Patient anointed and given last rites.
--- NOTE | 2019-06-15 21:33 | NUR ---
Daughter Ada and her brother at bedside. Lab here for lactic acid. Patient DNR. Family requested stop labs. Family 's wishes honored.
[2019-06-16] VITALS: BP 93/50
--- NOTE | 2019-06-16 00:22 | NUR ---
Warming blanket turned off.
[2019-06-16 01:00] VITALS: BP 92/59
--- NOTE | 2019-06-16 01:52 | NUR ---
0130 Patient bradyed quickly. Dtr Ada and her brother sleeping at bedside,awakened per nurse to be with patient. Emotional support given. supervisor natural gas plant JAYNE Webster called. ER doctor called per HS to pronounce patient since patient is intubated.
--- NOTE | 2019-06-16 02:16 | NUR ---
0205 ER doctor-Dr Mendez pronounced patient at 0205. Dtr and brother at bedside. 0210 TOSA called. Spoke to Rita. Stated case is now closed.
--- NOTE | 2019-06-16 04:30 | NUR ---
Family (daughter and 2 sons) left. Given phone number to call hothouse worker when family makes a decision on home. to [facility].
[2019-06-16] MEDS ORDERED: VANCOMYCIN 1GM+NS 250ML 250 ML IV SCH (14:00)
[2019-06-17 07:13] LABS: HEPATITIS A ANTIBODY IGM Negative (Negative); HEPATITIS B CORE IGM Negative (Negative); HEPATITIS Bs ANTIGEN SCREEN P Negative (Negative)
== END 2019-06-16 02:05 | disposition expired | DRG 871 ==
LOC: EDH 02:06 → EDHIP 08:31 → 2BH 14:34
PROVIDERS: ADMIT Family Medicine; ATTEND Family Medicine
PROC: 5A1945Z Respiratory Ventilation, 24-96 Consecutive Hours (ICD-10-PCS; principal; 2019-06-14)
PROC: 0BH17EZ Insertion of Endotracheal Airway into Trachea, Via Natural or Artificial Opening (ICD-10-PCS; 2019-06-14)
PROC: 3E0234Z Introduction of Serum, Toxoid and Vaccine into Muscle, Percutaneous Approach (ICD-10-PCS; 2019-06-14)
PROC: 30233K1 Transfusion of Nonautologous Frozen Plasma into Peripheral Vein, Percutaneous Approach (ICD-10-PCS; 2019-06-14)
PROC: 05HM33Z Insertion of Infusion Device into Right Internal Jugular Vein, Percutaneous Approach (ICD-10-PCS; 2019-06-14)
PROC: B543ZZA Ultrasonography of Right Jugular Veins, Guidance (ICD-10-PCS; 2019-06-14)
PROC: 0W9900Z Drainage of Right Pleural Cavity with Drainage Device, Open Approach (ICD-10-PCS; 2019-06-14)
DX: A41.9 Sepsis, unspecified organism (principal); J96.01 Acute respiratory failure with hypoxia; K72.00 Acute and subacute hepatic failure without coma; K56.609 Unspecified intestinal obstruction, unspecified as to partial versus complete obstruction; N39.0 Urinary tract infection, site not specified; D61.818 Other pancytopenia; E87.2 Acidosis; N17.9 Acute kidney failure, unspecified; R57.9 Shock, unspecified; K92.2 Gastrointestinal hemorrhage, unspecified; I46.9 Cardiac arrest, cause unspecified; E11.65 Type 2 diabetes mellitus with hyperglycemia; E78.5 Hyperlipidemia, unspecified; F02.80 Dementia in other diseases classified elsewhere, unspecified severity, without behavioral disturbance, psychotic disturbance, mood disturbance, and anxiety; G20 Parkinson's disease; G30.9 Alzheimer's disease, unspecified; I10 Essential (primary) hypertension; Z82.0 Family history of epilepsy and other diseases of the nervous system; Z82.3 Family history of stroke; Z82.49 Family history of ischemic heart disease and other diseases of the circulatory system; Z82.5 Family history of asthma and other chronic lower respiratory diseases; Z83.3 Family history of diabetes mellitus; Z85.038 Personal history of other malignant neoplasm of large intestine; Z66 Do not resuscitate; R34 Anuria and oliguria; Z23 Encounter for immunization
CPT/HCPCS: 31500; 32551; 36415; 36430; 36600; 71045; 74018; 74176; 80053; 80074; 81001; 82435; 82550; 82803; 82947; 82948; 83605; 83690; 83735; 83930; 83935; 84100; 84132; 84145; 84295; 84300; 84484; 84550; 85014; 85018; 85025; 85027; 85610; 85730; 86850; 86900; 86901; 86922; 86927; 87040; 87077; 87088; 87186; 92950; 93005; 93306; 94002; 94003; 94640; C9113; G0378; J0461; J1720; J1815; J2185; J2250; J2270; J2405; J2543; J3010; J3370; J3490; J7030; J7040; J7070; J7120; P9017